=== PATIENT | female | born 1990 | race Caucasian/White ===

== ENCOUNTER → 2021-03-10 | Outpatient (CLI) | payer OTHER ==
--- NOTE | 2021-03-10 15:51 | CT ---
EXAMINATION TYPE: CT brain wo con DATE OF EXAM: 03/10/2021 COMPARISON: Prior CT brain April 30, 2013 HISTORY: headache following fall CT DLP: 926.5 mGycm. Automated Exposure Control for Dose Reduction was Utilized. TECHNIQUE: CT scan of the head is performed without contrast. FINDINGS: There is no acute intracranial hemorrhage, mass effect, or midline shift identified. The ventricles and sulci are within normal limits in size. Mosley-white matter differentiation is maintai alexa. The globes are intact and the visualized sinuses are clear. Persistent anterior metopic suture w hich is normal variant. IMPRESSION: No acute intracranial hemorrhage or midline shift is seen.
== END | disposition home or self-care (01) ==
LOC: RADCTMAIN 15:12
PROVIDERS: ATTEND Family Medicine
DX: R51.9 Headache, unspecified (principal)
CPT/HCPCS: 70450

== ENCOUNTER → 2021-04-23 | Outpatient (CLI) | payer OTHER ==
--- NOTE | 2021-04-23 14:53 | EEG ---
ELECTROENCEPHALOGRAM REPORT DATE OF SERVICE: 04/23/2021. CLINICAL HISTORY: This is a 30-year-old woman with reported history of seizure who is having daily headache. The video EEG is obtained to evaluate for seizure epileptiform activity. Relevant medication is Lamictal. EEG TYPE: A routine 21-channel EEG is performed with video using the 10/20 electrode placement system. DESCRIPTION: Wakefulness and drowsiness are obtained. During awake state the posterior- dominant rhythm consists of low to moderate voltage that is well modulated and well sustained of 11-12 hertz activity. There is no physiological stage 2 sleep activity. There is no focal slowing. There is diffuse excessive beta activity. There is diffuse excessive beta activity. Interictal and ictal is none. ACTIVATION PROCEDURE: Photic stimulation did evoke a posterior driving response at multiple flash frequencies. There is no abnormality during the photic stimulation. During hyperventilation there is no abnormality noted. CLINICAL INTERPRETATION: This is a normal routine EEG. There is no focal slowing, epileptiform discharges or seizure noted during the study. The excessive beta activity is likely due to medication effect. Clinical correlation is recommended. RECOMMENDATION: If there continues to be a concern for seizures, recommend an ambulatory EEG (2.5-hour EEG as an outpatient). MMODL / IJN: [id number] / [facility] CLINICJanine
== END | disposition home or self-care (01) ==
LOC: NEUROMAIN 07:43
PROVIDERS: ATTEND Family Medicine
DX: G43.909 Migraine, unspecified, not intractable, without status migrainosus (principal)
CPT/HCPCS: 95819